=== PATIENT | female | born 1980 | race African-American/Black ===

== ENCOUNTER 2022-11-21 01:07 | Emergency (ER) | payer MEDICAID, OTHER ==
[~2022-11-21] VITALS: Ht 165.1 cm; Wt 70.0 kg
[2022-11-21 01:14] VITALS: O2SAT 100
[2022-11-21] MEDS ORDERED: CEFTRIAXONE 1GM PREMIX 50 ML IV ONE (03:30)
[2022-11-21] MEDS ORDERED: TETANUS, DIPHTHERIA, PERTUSSIS VAC/PF 0.5ML (>10YR OLD) IM ONE (03:30)
[2022-11-21 03:59] LABS: BASOPHILS % 0.8 % (0.0-2.0); DIFFERENTIAL COMMENT 0; EOSINOPHILS % 1.1 % (0.0-5.0); HEMATOCRIT. 38.9 % (36.0-48.0); HEMOGLOBIN. 12.9 g/dL (12.0-16.0); LYMPHOCYTES % 31.8 % (20.0-50.0); MEAN CORPUSCULAR HEMOGLOBIN 26.3 pg (28.0-32.0); MEAN CORPUSCULAR HGB CONC 33.2 g/dL (31.0-37.0); MEAN CORPUSCULAR VOLUME 79.2 fL (81.0-99.0); MEAN PLATELET VOLUME 8.2 fl (7.4-10.4); MONOCYTES % 7.5 % (2.0-8.0); NEUTROPHILS % 58.8 % (40.0-76.0); PLATELET 441 x1000/uL (130-400); RED BLOOD CELL COUNT 4.91 mill/uL (4.2-5.4); WHITE BLOOD COUNT 6.2 x1000/uL (4.5-11.0)
[2022-11-21 04:08] LABS: CHLORIDE 107 mEq/L (98-107); INDEX HEMOLYSI 1 (1-3); INDEX ICTERIC 1 (1-4); INDEX LIPEMIC 1 (1-3); POTASSIUM 3.2 mEq/L (3.5-5.1); SODIUM 137 mEq/L (136-145)
[2022-11-21 04:18] LABS: ALANINE AMINOTRANSFERASE 20 IU/L (13-61); ALBUMIN 3.8 g/dL (3.4-5.0); ASPARTATE AMINOTRANSFERASE 14 IU/L (15-37); BILIRUBIN TOTAL 0.6 mg/dL (0.1-1.0); CALCIUM 9.8 mg/dL (8.5-10.1); CARBON DIOXIDE 24 mEq/L (21-32); CREATININE 0.6 mg/dL (0.6-1.3); ETHANOL BLOOD < 10 mg/dL (-10); GLUCOSE 108 mg/dL (70-105); PROTEIN TOTAL 8.2 g/dL (6.0-8.3); UREA NITROGEN BLOOD 10 mg/dL (7-21)
[2022-11-21] MEDS ORDERED: TETRACAINE 0.5% OPHTH DROPS 4ML BOTHEYE ONE (05:15)
[2022-11-21] MEDS ORDERED: FLUORESCEIN SODIUM 1MG/STRIP BOTHEYE ONE (05:15)
[2022-11-21] MEDS ORDERED: POTASSIUM CHLORIDE 20MEQ/PACKET PO ONE (05:30)
[2022-11-23 06:00] VITALS: BP 132/62; PULSE 86; RESP 12; TEMP 98.1
== END 2022-11-24 09:05 | disposition home or self-care (01) ==
LOC: ER 01:07 → MICUSO 11-23 09:06 → UNDOADMIN 11-23 09:06 → UNDODISIN 11-24 09:03
DX: H16.003 Unspecified corneal ulcer, bilateral (principal); E87.6 Hypokalemia; Z77.098 Contact with and (suspected) exposure to other hazardous, chiefly nonmedicinal, chemicals; Z23 Encounter for immunization
CPT/HCPCS: 80053; 80320; 85025; 90715; 90471; 99283; 87426; 36415; J0696; C9803; Z7610 ×2; G0480

== ENCOUNTER 2023-12-20 08:15 | Emergency (ER) | payer OTHER ==
[~2023-12-20] VITALS: Ht 170.2 cm; Wt 60.0 kg
[2023-12-20 08:20] VITALS: O2SAT 99
[2023-12-20] MEDS: ACETAMINOPHEN 325MG TABLET PO NR (09:20)
[2023-12-20] MEDS ORDERED: CLONIDINE 0.1MG TABLET PO NR (09:30)
[2023-12-20 10:04] VITALS: BP 176/86; PULSE 72; RESP 18; TEMP 98.5
== END 2023-12-20 10:16 | disposition home or self-care (01) ==
LOC: ER 08:15
DX: B34.9 Viral infection, unspecified (principal); J02.9 Acute pharyngitis, unspecified; E11.9 Type 2 diabetes mellitus without complications; I10 Essential (primary) hypertension
CPT/HCPCS: 99282